=== PATIENT | female | born 1940 | race Caucasian/White ===

== ENCOUNTER 2024-03-25 19:06 | Observation (INO) | payer MEDICARE ==
[~2024-03-25] VITALS: Ht 162.6 cm; Wt 60.2 kg
[2024-03-25] VITALS (13 sets, daily range): BP systolic 129–153; BP diastolic 62–96
--- NOTE | 2024-03-25 20:07 | NUR ---
STERI STRIPS APPLIED TO RIGHT THUMB AND COMPRESSION DRESSING APPLIED PER MD ORDERS.
[2024-03-25 20:13] LABS: BASO% 0.5 % (0-3); EOS% 0.8 % (0-8); HEMATOCRIT 36.4 % (37.0-47.0); HEMOGLOBIN 11.8 g/dl (12.0-16.0); IMMATURE GRANULOCYTES 0.2 % (0.0-5.0); LYMPH% 21.9 % (15-41); MEAN CELL VOLUME 95.8 fL CALC (80.0-100.0); MEAN CORPUSCULAR HGB 31.1 pG CALC (26.0-32.0); MEAN CORPUSCULAR HGB CONC 32.4 g/dL CAL (32.0-36.0); MONO% 10.1 % (2-13); NEUT# 4.35 thou/uL (2.00-7.15); NEUT% 66.5 % (42-76); RED BLOOD COUNT 3.8 mill/uL (4.20-5.60); RED CELL DISTRI WIDTH 13.3 % (11.5-15.5)
[2024-03-25 20:23] LABS: ALBUMIN 3.7 g/dL (3.2-5.0); BILIRUBIN, TOTAL 0.9 mg/dL (0.02-1.3); CREATININE 0.9 mg/dL (0.5-1.0); MAGNESIUM 2.3 mg/dL (1.6-2.3); POTASSIUM 3.3 mmol/l (3.5-5.1); TOTAL PROTEIN 6.3 g/dL (6.3-8.2)
[2024-03-25] MEDS ORDERED: LACTATED RINGER'S 1,000 ML IV ONE (20:35)
[2024-03-25 20:43] LABS: ACT PARTIAL THROMBO TIME 25.2 SECONDS (20.0-32.5); INTERNATIONAL NORMALIZED RATIO 1.2 RATIO (0.7-1.3)
[2024-03-25 20:46] LABS: PROTHROMBIN TIME 12.3 SECONDS (9.0-12.5)
[2024-03-25] MEDS ORDERED: MECLIZINE25 MG PO (20:47)
[2024-03-25] MEDS ORDERED: ZOFRAN4 MG/TAB PO (20:48)
[2024-03-25] MEDS ORDERED: PROCHLORPERAZINE5 M1 (20:48)
[2024-03-25] MEDS ORDERED: PLAVIX75 MG PO (20:49)
--- NOTE | 2024-03-25 21:10 | NUR ---
Reassessment of patient completed. No distress noted.
[2024-03-25] MEDS ORDERED: OMEPRAZOLE DR40 MG PO (21:30)
[2024-03-25] MEDS ORDERED: XANAX0.25 MG PO (21:31)
[2024-03-25] MEDS ORDERED: AMLODIPINE BESYL5 MG PO (21:32)
[2024-03-25] MEDS ORDERED: INDERAL 40MG TA40 MG PO (21:32)
[2024-03-25] MEDS ORDERED: LOSARTAN POTASS25 MG PO (21:32)
[2024-03-25] MEDS ORDERED: REPATHA SUR140 MG/ML SC (21:52)
[2024-03-25 23:18] LABS: URINE GLUCOSE - DIPSTICK Negative (NEGATIVE); URINE KETONE 80 mg/dL (NEGATIVE); URINE PH 5.5 (4.5-8.0); URINE PROTEIN - DIPSTICK 30 mg/dL (NEG-TRACE); URINE UROBILINOGEN - DIPSTICK 0.2 E.U./dL (0.2)
[2024-03-25 23:25] LABS: URINE COLOR Yellow; URINE LEUK ESTERASE Moderate (NEGATIVE); URINE NITRITE - DIPSTICK Positive (Negative)
[2024-03-25 23:26] LABS: URINE BACTERIA MANY hpf; URINE BLOOD DIPSTICK Negative (NEGATIVE); URINE EPITHELIAL CELLS MODERATE EPI/hpf (0-FEW); URINE WBC 20-50 WBC/hpf (0-5)
[2024-03-25] MEDS ORDERED: IBUPROFEN 800 MG/TAB PO PRN (23:50)
[2024-03-25] MEDS ORDERED: ONDANSETRON 4 MG/TAB ODT PO PRN (23:50)
[2024-03-25] MEDS ORDERED: ALUM & MAG HYDROX-SIMETHICONE 30 ML PO PRN (23:50)
[2024-03-25] MEDS ORDERED: SODIUM CHLORIDE 0.9% 1,000 ML IV PRN (23:50)
[2024-03-25] MEDS ORDERED: ENOXAPARIN SODIUM 40 MG/0.4 ML SYR SC ONE (23:50)
[2024-03-25] MEDS ORDERED: ONDANSETRON HCl 4 MG/2 ML SDV IV PRN (23:50)
[2024-03-25] MEDS ORDERED: FAMOTIDINE 10MG/ML 2ML SDV IV PRN (23:50)
[2024-03-25] MEDS ORDERED: Polyethylene Glycol 3350 17 GM/PKT PO PRN (23:50)
[2024-03-25] MEDS ORDERED: cefTRIAXone SODIUM 2 GM in SODIUM CHLORIDE 0.9% 100 ML IV ONE (23:55)
[2024-03-25] MEDS ORDERED: GADOPICLENOL (VUEWAY) 0.5 MM/ML 3.75MM/7.5ML VIAL IV ONE (23:55)
[2024-03-25] MEDS ORDERED: SODIUM CHLORIDE 0.9% 1,000 ML IV ONE (23:55)
[2024-03-26] VITALS (55 sets, daily range): BP systolic 80–162; BP diastolic 35–102
--- NOTE | 2024-03-26 00:15 | NUR ---
NEUROLOGIST SPEAKING WITH PT. MCNAIR AND AT BEDSIDE.
--- NOTE | 2024-03-26 00:56 | NUR ---
PT REPORT GIVEN TO ICU
--- NOTE | 2024-03-26 01:05 | NUR ---
PT TRANSPORTED TO ICU BED 1 VIA STRETCHER WITH AT SIDE
--- NOTE | 2024-03-26 01:23 | NUR ---
Patient arrived at the unit accompanied by ED RN and . Patient is AOx1 but easily re-oriented. Patient is RA, VS within parameters. Patient pivet to bed from [facility] with this RN assistance. Admission assessment performed at this time with 's help. Home medication retained and properly labeled to be send to pharmacy
--- NOTE | 2024-03-26 01:23 | NUR ---
PATIENT ARRIVED TO THE UNIT VIA STRETCHER ACCOMPAINED BY TORI NICHOLSON LPN AND PATIENT'S WHO HAS REQUESTED TO STAY OVERNIGHT WITH PATIENT. REQUEST GRANTED BY PRIMARY NURSE, JUAN. PATIENT WALKED FROM STRETCHER TO BED WITH MINIMAL ASSISTANCE.
--- NOTE | 2024-03-26 02:30 | NUR ---
SBP reading low. BP cuff loose. RN change and fix the cuff. Better BP reading obtained. Patient is sleeping comfortably. No complains at this time
--- NOTE | 2024-03-26 04:01 | NUR ---
Patient sleeping. VS within parameters. No changes in reasessment
[2024-03-26 06:15] LABS: BASO% 0.5 % (0-3); EOS% 1.7 % (0-8); HEMOGLOBIN 10.2 g/dl (12.0-16.0); IMMATURE GRANULOCYTES 0.2 % (0.0-5.0); LYMPH% 30.2 % (15-41); MEAN CELL VOLUME 98.5 fL CALC (80.0-100.0); MEAN CORPUSCULAR HGB 31.4 pG CALC (26.0-32.0); MEAN CORPUSCULAR HGB CONC 31.9 g/dL CAL (32.0-36.0); MONO% 10.7 % (2-13); NEUT# 3.44 thou/uL (2.00-7.15); NEUT% 56.7 % (42-76); RED BLOOD COUNT 3.25 mill/uL (4.20-5.60); RED CELL DISTRI WIDTH 13.5 % (11.5-15.5)
[2024-03-26 06:26] LABS: CREATININE 0.7 mg/dL (0.5-1.0); POTASSIUM 2.9 mmol/l (3.5-5.1)
[2024-03-26] MEDS ORDERED: MECLIZINE HCL 25 MG/TAB PO SCH (08:00)
--- NOTE | 2024-03-26 08:00 | NUR ---
PT LAYING IN BED WITH EYES CLOSED ON LEFT SIDE. PT EASILY ARROUSES TO VERBAL STIMULI. DOCTOR IN SPEAKING TO PT AND SPOUSE PLAN OF CARE. PT AMBULATED TO BATHROOM WITH NO ASSIST, NURSE THERE TO ENSURE SAFETY. PT VOIDED. PT ORIENTED TO SELF AND PLACE. PT LACKS AN APPETITE, BUT OFFERED BREAKFAST. BED SIDE ASSESMENT COMPLETE. TELLE IN PLACE. BREATHING IS CLEAR AND UNLABORED WITH CLEAR LUNG JIMENEZ. STONG PEDAL AND RADIAL PULSES. PT REMINDED OF SAFETY PRECAUTIONS. BED IN LOWEST POSITION AND CALL CHAVEZ WITHIN REACH.
[2024-03-26] MEDS ORDERED: PROCHLORPERAZINE MALEATE 5 MG/TAB PO PRN (08:10)
--- NOTE | 2024-03-26 08:20 | NUR ---
PT'S FRIEND CARIN FRANCO CALLED FOR UPDATE ON PT, PT GAVE NURSE PERMISSION TO GIVE CARIN THE CODE, UPDATE GIVEN
[2024-03-26] MEDS ORDERED: POTASSIUM CHLORIDE 20MEQ 100 ML IV SCH ×2 (08:30→17:00)
[2024-03-26 08:56] LABS: CHOLESTEROL HDL RATIO 4.3 (<4.4 (CALC))
[2024-03-26] MEDS ORDERED: ASPIRIN 81 MG/TAB PO SCH (09:00)
[2024-03-26] MEDS ORDERED: CLOPIDOGREL BISULFATE 75 MG/TAB TAB PO SCH (09:00)
[2024-03-26 09:27] LABS: TSH, 3RD GENERATION 2.3 uIU/mL (0.47 - 4.68)
--- NOTE | 2024-03-26 11:03 | NUR ---
NEUROLOGIST SPOKE TO PT AND SPOUSE ELECTRONICALLY WITH NURSE IN ROOM. NEUROLOGIST COMPLETED HER ASSESMENT AND ASKED THE PT QUESTIONS. PT RESTING SITTING UP IN BED WITH SPOUSE IN BED SIDE CHAIR. BED IN LOWEST POSITION AND CALL LIGHT WITHIN REACH.
--- NOTE | 2024-03-26 12:00 | NUR ---
PT SITTING UP IN BED WITH SPOUSE IN BED SIDE CHAIR. PATIENT OFFERED SOUP BUT DECLINES FOOD DUE TO NAUSEA. NURSING INTERVENTIONS IN PLACE AND MEDICATED FOR THE NAUSEA. DECLINES ANY NEEDS AT THIS TIME. SAFETY PRECAUTIONS REINFORCED. BED IN THE LOWEST POSITION AND CALL CHAVEZ WITHIN REACH.
[2024-03-26] MEDS ORDERED: BISACODYL 10 MG SUPP RE PRN (12:40)
[2024-03-26] MEDS ORDERED: ONDANSETRON HCl 4 MG/2 ML SDV IV PRN (12:40)
--- NOTE | 2024-03-26 13:35 | NUR ---
PT TAKEN TO MRI VIA WC ACCOMPANIED BY NURSE
--- NOTE | 2024-03-26 15:55 | NUR ---
PROVIDER NOTIFIED PT IS REQUESTING MEDICATION FOR ANXIETY, ORDERS GIVEN
[2024-03-26] MEDS ORDERED: ALPRAZolam 0.25 MG PO PRN (16:10)
--- NOTE | 2024-03-26 16:10 | NUR ---
PT SITTING UP IN BED WATCHING TV WITH SPOUSE IN BED SIDE CHAIR. RESP EVEN AND UNLABORED ON ROOM AIR. TELLE IN PLACE. ALERT AND ORIENTED TO SELF AND PLACE. PT DECLINES ANY NEEDS AT THIS TIME. BED IN THE LOWEST POSITION AND CALL LIGHT WITHIN REACH.
--- NOTE | 2024-03-26 20:00 | NUR ---
Report received from daysmtft nurse. Patient is resting in bed. Patient request assistance to go to the bathroom. Urine x1. Patient is Alert and appropriate. No other requests at this time
--- NOTE | 2024-03-26 22:00 | NUR ---
patient assisted to the bathroom. snack requested and given. No change in reassessment. VS within parameters
[2024-03-27] VITALS (30 sets, daily range): BP systolic 97–180; BP diastolic 52–105
--- NOTE | 2024-03-27 | NUR ---
Patient sleeping. VS within parameters. No changes in reasessment
--- NOTE | 2024-03-27 02:15 | NUR ---
patient used call ligt to request assistance to go to the [facility], which was given by RN. VS are within parameters. No changes in assessment
--- NOTE | 2024-03-27 04:00 | NUR ---
Patient assisted tyo ther bathroom to pee. No report of discomfort. VS within parametyers. No change in reassessment
--- NOTE | 2024-03-27 06:11 | NUR ---
Patient sleeping. no change in assessment. VS within parameters
[2024-03-27 06:46] LABS: BILIRUBIN, TOTAL 0.6 mg/dL (0.02-1.3); CREATININE 0.6 mg/dL (0.5-1.0); TOTAL PROTEIN 5.1 g/dL (6.3-8.2)
[2024-03-27 06:53] LABS: ALBUMIN 2.8 g/dL (3.2-5.0); MAGNESIUM 1.6 mg/dL (1.6-2.3); POTASSIUM 3.9 mmol/l (3.5-5.1)
[2024-03-27 06:56] LABS: BASO% 0.6 % (0-3); EOS% 3.1 % (0-8); HEMATOCRIT 30.6 % (37.0-47.0); HEMOGLOBIN 9.7 g/dl (12.0-16.0); IMMATURE GRANULOCYTES 0.2 % (0.0-5.0); LYMPH% 31.4 % (15-41); MEAN CELL VOLUME 98.1 fL CALC (80.0-100.0); MEAN CORPUSCULAR HGB 31.1 pG CALC (26.0-32.0); MEAN CORPUSCULAR HGB CONC 31.7 g/dL CAL (32.0-36.0); MONO% 9.6 % (2-13); NEUT# 2.71 thou/uL (2.00-7.15); NEUT% 55.1 % (42-76); RED BLOOD COUNT 3.12 mill/uL (4.20-5.60); RED CELL DISTRI WIDTH 13.8 % (11.5-15.5)
--- NOTE | 2024-03-27 07:30 | NUR ---
PT LAYING FLAT IN BED WITH EYES CLOSED. PT EASILY ARRISES TO VERBAL STIMULI. PT ALERT TO PERSON, PLACE, AND TIME. ASSESMENT COMPLETED. RESP CLEAR AND UNLABORED ON ROOM AIR. NORMAL S1,S2 HEEART RYTHM. STRONG RADIAL AND PEDAL PULSES. PT STATES NAUSEA, MEDICATED. BREAKFAST WAS OFFERED, BUT PT DECLINES DUE TO NAUSEA, TRAY LEFT IN ROOM INCASE NAUSEA SUBSIDES. PT REMINDED OF SAFETY PRECAUTIONS. BED IN THE LOWEST POSITION AND CALL CHAVEZ WITHIN REACH.
[2024-03-27] MEDS ORDERED: amLODIPine BESYLATE 5 MG/TAB PO SCH (10:00)
--- NOTE | 2024-03-27 12:00 | NUR ---
PT SITTING UP IN BED WITH SPOUSE IN ROOM. PT OFFERED LUNCH BUT DECLINED DUE TO NAUSEA. PT REQUESTED JELLO AND HAS EATEN HALF OF CONTAINER. PT IS ALERT AND ORIENTED TO SELF, TIME, AND PLACE. TELLE IN PLACE. PT AMBULATED TO BATHROOM WITH MINIMAL ASSIST AND VOIDED. PT DECLINES ANY NEEDS AT THIS TIME. BED IN THE LOWEST POSITION AND CALL LIGHT WITHIN REACH.
--- NOTE | 2024-03-27 16:00 | NUR ---
PT AMBULATED TO BATHROOM AND VOIDED AND THEN TO BED SIDE CHAIR WITH MINIMAL ASSIST. PT IS SITTING COMFORTABLE IN BED SIDE CHAIR WITH SPOUSE IN ROOM. PT IS AXO X3. PATIENT TELLE IN PLACE. PT BREATHING IS EVEN AND UNLABORED ON ROOM AIR. BED IN THE LOWEST POSITION AND CALL CHAVEZ WITHIN REACH.
--- NOTE | 2024-03-27 19:30 | NUR ---
awake. no acute distress. cardiac care unit nurse shows sinus rhythm. ivf infusing well. po fluids taken poor. voids per bathroom. fall precautions cont. @ bedside.
[2024-03-28] VITALS (7 sets, daily range): BP systolic 115–150; BP diastolic 62–76
--- NOTE | 2024-03-28 00:01 | NUR ---
monitor worker shows sinus rhythm.
--- NOTE | 2024-03-28 04:11 | NUR ---
cardiac rn shows sinus rhythm.
--- NOTE | 2024-03-28 07:15 | NUR ---
RECEIVED REPORT FROM GALO PAUL. PT SEEN RESTING IN BED WITH AT BEDSIDE. PT WITHOUT COMPLAINTS. CALL LIGHT IN REACH. WILL MONITOR.
[2024-03-28] MEDS ORDERED: LOSARTAN Potassium 25 MG/TAB PO SCH (09:00)
[2024-03-28] MEDS ORDERED: PROMETHAZINE HCL 25 MG/TAB PO PRN (09:55)
--- NOTE | 2024-03-28 11:59 | NUR ---
PT SITTING UP IN CHAIR WITH HUISBAND AT PT SIDE. PT WORKED WITH Kalia SMILEY AWAITING POSS D/C HOME WITH HH. PT WITHOUT COMPLAINTS. REMAINS WITH BRUISING TO RIGHT SIDE OF FACE UNCHANGED. WILL MONITOR.
--- NOTE | 2024-03-28 15:30 | NUR ---
PT UP TO BR FOR SHOWER AND THEN PT C/O TINGLING TO RIGHT FOOT FROM GREAT TOE TO BOTTOM OF FOOT UP TO LOW SANDRA. PATT PASSENGER SERVICE REPRESENTATIVE INFORMED. CAP REFIL SLUGGISH AND PALPABLE PT PULSE. FAINT DP. WILL MONITOR.
[2024-03-28] MEDS ORDERED: PROMETHAZINE HCL 25 MG/TAB PO SCH (17:00)
--- NOTE | 2024-03-28 19:20 | NUR ---
PT RESTINGIN BED WITH AND FRIEND AT BEDSIDE. PT WITHOUT COMPLAINTS. IV PATENT. REPORT GIVEN TO KELLIE.
--- NOTE | 2024-03-28 20:00 | NUR ---
REPORT RECEIVED. PT SITTING UP IN BED IN STABLE CONDITION. ALERT AND APPROPRIATE. FAMILY AT BEDSIDE. NO COMPLAINTS AT THIS TIME. NO S/S OF RESP DISTRESS NOTED. ROOM AIR. TELE #9, HR 89, SINUS RHYTHM ON THE MONITOR. SAFETY MEASURES IN PLACE. WILL CONTINUE TO MONITOR.
--- NOTE | 2024-03-28 20:48 | NUR ---
03/28/2023 @1999 pt glucose was 98
[2024-03-29] VITALS: BP 115/62
--- NOTE | 2024-03-29 | NUR ---
PT RESTING IN BED COMFORTABLY. NO S/S OF DISCOMFORT OR DISTRESS. REQUIRES ASSIST X1 WITH ADLs. AT BEDSIDE. CALL LIGHT WITHIN REACH. WILL CONTINUE TO MONITOR.
[2024-03-29 04:00] VITALS: BP 120/65
--- NOTE | 2024-03-29 04:20 | NUR ---
PT ALERT AND AWAKE. SITTING UP IN BED IN STABLE CONDITION. ASSISTED TO THE BATHROOM. VOIDED WITHOUT DIFFICULTY. REQUIRES STAND BY ASSIST X1. AT BEDSIDE .NO S/S OF DISTRESS NOTED. WILL CONTINUE TO MONITOR
[2024-03-29 05:55] LABS: BASO% 0.4 % (0-3); EOS% 2.2 % (0-8); HEMATOCRIT 31.8 % (37.0-47.0); HEMOGLOBIN 10.1 g/dl (12.0-16.0); IMMATURE GRANULOCYTES 0.2 % (0.0-5.0); LYMPH% 31.4 % (15-41); MEAN CELL VOLUME 98.8 fL CALC (80.0-100.0); MEAN CORPUSCULAR HGB 31.4 pG CALC (26.0-32.0); MEAN CORPUSCULAR HGB CONC 31.8 g/dL CAL (32.0-36.0); MONO% 11.3 % (2-13); NEUT# 2.94 thou/uL (2.00-7.15); NEUT% 54.5 % (42-76); RED BLOOD COUNT 3.22 mill/uL (4.20-5.60); RED CELL DISTRI WIDTH 13.5 % (11.5-15.5)
[2024-03-29 06:01] LABS: ALBUMIN 2.8 g/dL (3.2-5.0); BILIRUBIN, TOTAL 0.5 mg/dL (0.02-1.3); CREATININE 0.6 mg/dL (0.5-1.0); MAGNESIUM 1.6 mg/dL (1.6-2.3); POTASSIUM 3.5 mmol/l (3.5-5.1); TOTAL PROTEIN 5.2 g/dL (6.3-8.2)
--- NOTE | 2024-03-29 06:20 | NUR ---
RECEIVED A CALL FROM LAB FOR CRITICAL LAB VALUE OF GLUCOSE 53. PT ALERT. ASYMPTOMATIC. GIVEN ORANGE JUICE AND SNACK. WILL RECHECK VIA FINGERSTICK.
[2024-03-29 07:02] VITALS: BP 138/73
[2024-03-29 07:14] VITALS: BP 138/73
--- NOTE | 2024-03-29 07:15 | NUR ---
BLOOD GLUCOSE RECHECKED.GLUCOSE LEVEL 88. PASS ON REPORT TO CONTINUE TO MONITOR.
--- NOTE | 2024-03-29 08:30 | NUR ---
PT IS FOUND RESTING COMFORTABLY IN BED. PT STATES SHE HAS SOME NAUSEA; WILL MEDICATE. PT IS A&O X4 AND STABLE. LUNG SOUNDS ARE CLEAR. PT STATES NO COMPLAINTS OF PAIN. PLAN OF CARE WAS REVIEWED WITH THE PATIENT; NO FURTHER QUESTIONS AT THIS TIME. ALL NATIONAL PT SAFETY PRECAUTIONS ARE IN PLACE.
[2024-03-29] MEDS ORDERED: ZOFRAN4 MG/TAB PO (09:52)
[2024-03-29] MEDS ORDERED: OMNICEF300 MG PO (09:53)
[2024-03-29] MEDS ORDERED: ASPIRIN81 MG PO (09:53)
[2024-03-29 10:40] VITALS: BP 125/67
[2024-03-29 10:47] VITALS: BP 125/67
--- NOTE | 2024-03-29 12:03 | NUR ---
PT'S CONDITION REMAINS UNCHANGED; ALL NATIONAL PT SAFETY PRECAUTIONS IN PLACE.
== END 2024-03-29 16:10 ==
LOC: ED 19:06 → ED-I 23:40 → ED 23:51 → ICU 23:52 → MS2 23:52
PROVIDERS: Family Medicine; Nurse Practitioner Family; ADMIT Internal Medicine; ATTEND Internal Medicine
DX: R42 Dizziness and giddiness (principal); N39.0 Urinary tract infection, site not specified; B96.1 Klebsiella pneumoniae [K. pneumoniae] as the cause of diseases classified elsewhere; S00.81XA Abrasion of other part of head, initial encounter; M25.551 Pain in right hip; I69.398 Other sequelae of cerebral infarction; R11.2 Nausea with vomiting, unspecified; R26.89 Other abnormalities of gait and mobility; E87.6 Hypokalemia; I10 Essential (primary) hypertension; W01.0XXA Fall on same level from slipping, tripping and stumbling without subsequent striking against object, initial encounter; Y92.009 Unspecified place in unspecified non-institutional (private) residence as the place of occurrence of the external cause; Z79.02 Long term (current) use of antithrombotics/antiplatelets; Z95.2 Presence of prosthetic heart valve
CPT/HCPCS: A9579; J0696; J1650; J2405; J3480